=== PATIENT | male | born 1960 | race Caucasian/White ===

== ENCOUNTER 2020-02-14 13:03 | Emergency (ER) | payer BC ==
[2020-02-14 13:49] LABS: Absolute Lymphocytes (CBC) 3.2 K/uL (0.7-4.9); Basophils % 1.3 % (0-1.3); Hematocrit 50.9 % (39.6-49.0); Lymphocytes % 26.2 % (15.3-44.8); MPV 8.2 fL (7.6-11.3); RBC Red Blood Cell Count 5.81 M/uL (4.33-5.43)
[2020-02-14] MEDS ORDERED: ONDANSETRON 4 MG/2 ML VIAL ONE (13:54)
[2020-02-14] MEDS ORDERED: MORPHINE 4 MG/ML SYR ONE (13:54)
--- NOTE | 2020-02-14 14:04 | RAD REPORT ---
EXAM DESCRIPTION: CT - Head C Spine Cap W Con - 02/14/2020 1:42 pm CLINICAL HISTORY: 20' fall COMPARISON: No comparisons TECHNIQUE: Axial [address] head images were obtained. Axial [address] cervical spine images were obtaine d with sagittal and coronal reconstruction images reviewed. During dynamic enhancement of 100mL non-i onic contrast, axial 5 mm images of the chest, abdomen and pelvis were obtained. Biphasic technique p erformed of the abdomen and pelvis. All CT scans are performed using dose optimization technique as appropriate and may include automated exposure control or mA/KV adjustment according to patient size. FINDINGS: No intracranial hemorrhage, mass or edema. No midline shift or abnormal fluid collection. Mastoid air cells and paranasal sinuses are clear. No skull fracture. CT cervical spine imaging shows normal height. Normal alignment of the vertebrae. Minimal degenerativ e spurring changes are present at C4-5. No disc space narrowing. No paraspinal mass or hematoma seen. Central canal detail is inherently limited. Concerns for traumatic disc herniation or traumatic cord injury can be further addressed with MR imaging. Nodularity of the thyroid gland is present but not fully assessed. The largest nodule is probably 15 mm. This can be followed with sonography as clinica l findings warrant. CT chest shows no pneumothorax, pulmonary contusion or pleural fluid collection. No mediastinal hemat zeynep and the aorta and pulmonary arteries are unremarkable. No chest will mass or abnormal axillary fi nding. No displaced rib fracture or other significant bony finding. No pericardial effusion. Coronar y artery calcifications are present. CT abdomen and pelvis show no injury to solid abdominal viscera. Several small liver cysts are identi fied. Gallbladder and biliary tree are unremarkable. No bowel injury or significant finding. No free air, free fluid or abnormal stranding. No urinary bladder abnormality. Scattered degenerative changes are present in the skeleton. No pelvic or hip joint abnormality. No ac ting traumatic bony injury confirmed. No significant vascular finding. IMPRESSION: No hemorrhage, edema or acute CT Head finding. Mild cervical spine degenerative change with no acute finding. Central canal detail is inherently mcclelland ited. No acute traumatic injury to the chest. No traumatic injury to the abdomen or pelvis.
[2020-02-14 14:22] LABS: Potassium 4.6 mmol/L (3.5-5.1)
--- NOTE | 2020-02-14 14:37 | RAD REPORT ---
EXAM DESCRIPTION: RAD - Hand Left 3 View - 02/14/2020 1:59 pm CLINICAL HISTORY: PAIN, fall from 20 feet, right-sided hand and wrist pain COMPARISON: None. FINDINGS: No fracture, dislocation or periosteal reaction noted. No foreign body or other soft tissu e abnormality. IMPRESSION: Negative left hand examination.
--- NOTE | 2020-02-14 14:38 | RAD REPORT ---
EXAM DESCRIPTION: RAD - Wrist Left 3 View - 02/14/2020 1:59 pm CLINICAL HISTORY: PAIN, fall from ladder, left hand and wrist pain COMPARISON: No comparisons FINDINGS: No fracture is identified. There is no dislocation or periosteal reaction noted. No foreig n body or other soft tissue abnormality. Patient has a minimal negative ulnar variance as a normal v ariant in anatomy. IMPRESSION: Negative left wrist examination.
--- NOTE | 2020-02-14 16:21 | EDPHYS ---
Physician Documentation [facility] Name: Marcin Khanna Age: 59 yrs Sex: Male : 1960 Arrival Date: 02/14/2020 Time: 13:03 Bed 8 Private MD: ED Physician Sergio Giraldo HPI: 02/13 16:23 This 59 yrs old Male presents to ER via Wheelchair with complaints of Fall kdr Injury. 16:23 Details of fall: The patient fell from a height, from a ladder, approximately 20 feet. kdr Onset: The symptoms/episode began/occurred acutely, just prior to arrival. Associated injuries: The patient sustained right hip and thigh and left wrist. Severity of symptoms: At their worst the symptoms were mild. The patient has not experienced similar symptoms in the past. The patient has not recently seen a physician. Historical: - Allergies: 14: No Known Allergies; sv - PMHx: 14: Diabetes - NIDDM; sv - Immunization history:: Adult Immunizations up to date. - Social history:: Smoking status: unknown. ROS: 16:23 Constitutional: Negative for fever, chills, and weight loss, Eyes: Negative for injury, kdr pain, redness, and discharge, Neck: Negative for injury, pain, and swelling, Cardiovascular: Negative for chest pain, palpitations, and edema, Respiratory: Negative for shortness of breath, cough, wheezing, and pleuritic chest pain, Abdomen/GI: Negative for abdominal pain, nausea, vomiting, diarrhea, and constipation, Back: Negative for injury and pain, : Negative for injury, bleeding, discharge, and swelling, Neuro: Negative for headache, weakness, numbness, tingling, and seizure activity. Psych: Negative for depression, anxiety, suicide ideation, homicidal ideation, and hallucinations, Allergy/Immunology: Negative for hives, rash, and allergies, Endocrine: Negative for neck swelling, polydipsia, polyuria, polyphagia, and marked weight changes, Hematologic/Lymphatic: Negative for swollen nodes, abnormal bleeding, and unusual bruising. 16:23 MS/extremity: Positive for injury or acute deformity, contusion, ecchymosis, pain, tenderness, of the left wrist, lateral aspect of right thigh and lateral aspect of right knee. Exam: 16:23 Constitutional: This is a well developed, well nourished patient who is awake, alert, kdr and in no acute distress. Head/Face: Normocephalic, atraumatic. Eyes: Pupils equal round and reactive to light, extra-ocular motions intact. Lids and lashes normal. Conjunctiva and sclera are non-icteric and not injected. Cornea within normal limits. Periorbital areas with no swelling, redness, or edema. Neck: Trachea midline, no thyromegaly or masses palpated, and no cervical lymphadenopathy. Supple, full range of motion without nuchal rigidity, or vertebral point tenderness. No Meningismus. Chest/axilla: Normal chest wall appearance and motion. Nontender with no deformity. No lesions are appreciated. Cardiovascular: Regular rate and rhythm with a normal S1 and S2. No gallops, murmurs, or rubs. Normal PMI, no JVD. No pulse deficits. Respiratory: Lungs have equal breath sounds bilaterally, clear to auscultation and percussion. No rales, rhonchi or wheezes noted. No increased work of breathing, no retractions or nasal flaring. Abdomen/GI: Soft, non-tender, with normal bowel sounds. No distension or tympany. No guarding or rebound. No evidence of tenderness throughout. Back: No spinal tenderness. No costovertebral tenderness. Full range of motion. Neuro: Awake and alert, GCS 15, oriented to person, place, time, and situation. Cranial nerves II-XII grossly intact. Motor strength 5/5 in all extremities. Sensory grossly intact. Cerebellar exam normal. Normal gait. Psych: Awake, alert, with orientation to person, place and time. Behavior, mood, and affect are within normal limits. 16:23 Skin: injury, contusion(s), that are superficial, of the left wrist, lateral aspect of right thigh, lateral aspect of right knee and lateral aspect of right calf. Vital Signs: 13:12 BP 87 / 60; Pulse 87; Resp 22; Temp 97.0(TE); Pulse Ox 98% on R/A; Weight 86.18 kg; ss Height 5 ft. 10 in. (177.80 cm); Pain 8/10; 14:02 BP 120 / 73; Pulse 74; Resp 16; Temp 97.1; Pulse Ox 96% ; sv 14:38 BP 114 / 73; Pulse 68; Resp 16; Temp 97; Pulse Ox 98% ; sv 15:00 BP 119 / 74; Pulse 69; Resp 18; Pulse Ox 99% ; sv 16:15 BP 119 / 71; Pulse 72; Resp 16; Pulse Ox 99% ; sv 13:12 Body Mass Index 27.26 (86.18 kg, 177.80 cm) ss [place] Coma Score: 13:12 Eye Response: spontaneous(4). Verbal Response: oriented(5). Motor Response: obeys ss commands(6). Total: 15. 15:00 Eye Response: spontaneous(4). Verbal Response: oriented(5). Motor Response: obeys sv commands(6). Total: 15. 16:15 Eye Response: spontaneous(4). Verbal Response: oriented(5). Motor Response: obeys sv commands(6). Total: 15. Trauma Score (Adult): 13:12 Eye Response: spontaneous(1); Verbal Response: oriented(1); Motor Response: obeys ss commands(2); Systolic BP: > 89 mm Hg(4); Respiratory Rate: 10 to 29 per min(4); [place] Score: 15; Trauma Score: 12 14:02 Eye Response: spontaneous(1); Verbal Response: oriented(1); Motor Response: obeys sv commands(2); Systolic BP: > 89 mm Hg(4); Respiratory Rate: 10 to 29 per min(4); [place] Score: 15; Trauma Score: 12 14:39 Eye Response: spontaneous(1); Verbal Response: oriented(1); Motor Response: obeys sv commands(2); Systolic BP: > 89 mm Hg(4); Respiratory Rate: 10 to 29 per min(4); [place] Score: 15; Trauma Score: 12 15:00 Eye Response: spontaneous(1); Verbal Response: oriented(1); Motor Response: obeys sv commands(2); Systolic BP: > 89 mm Hg(4); Respiratory Rate: 10 to 29 per min(4); [place] Score: 15; Trauma Score: 12 16:15 Eye Response: spontaneous(1); Verbal Response: oriented(1); Motor Response: obeys sv commands(2); Systolic BP: > 89 mm Hg(4); Respiratory Rate: 10 to 29 per min(4); [place] Score: 15; Trauma Score: 12 Laceration: 16:19 Wound Repair of 1.5cm ( 0.6in ) subcutaneous laceration to dorsal aspect of proximal snw phalanx of left thumb. Minimal bleeding noted.. Distal neuro/vascular/tendon intact. Anesthesia: Wound infiltrated with 3 mls of 1% lidocaine. Wound prep: Extensive cleansing with hibiclenz by me. Skin closed with 2 4-0 Prolene using simple sutures and sterile technique. Dressed with non-adherent dressing. Patient tolerated well. MDM: 16:20 Patient medically screened. kdr 16:23 Data reviewed: vital signs, nurses notes, lab test result(s), radiologic studies. kdr Counseling: I had a detailed discussion with the patient and/or guardian regarding: the historical points, exam findings, and any diagnostic results supporting the discharge/admit diagnosis, lab results, radiology results, the need for outpatient follow up. 02/13 13:25 Order name: Basic Metabolic Panel; Complete Time: 14:53 kdr 02/13 13:25 Order name: CBC with Diff; Complete Time: 14:09 kdr 02/13 13:25 Order name: CT Traumagram (Head C Spine CAP W Con); Complete Time: 14:09 kdr 02/13 13:25 Order name: Type And Screen; Complete Time: 14:53 kdr 02/13 14:10 Order name: CREATININE WHOLE BLOOD; Complete Time: 14:53 EDMS 02/13 14:39 Order name: ABO/RH no charge; Complete Time: 14:53 EDMS 02/13 13:25 Order name: Labs collected and sent; Complete Time: 13:30 kdr 02/13 13:25 Order name: Wrist Left (3 View) XRAY; Complete Time: 14:53 kdr 02/13 13:25 Order name: Hand Left 3 View XRAY; Complete Time: 14:53 kdr Administered Medications: 13:51 Drug: Zofran (Ondansetron) 4 mg Route: IVP; Site: right antecubital; sv 17:27 Follow up: Response: No adverse reaction sv 13:53 Drug: morphine 4 mg {Note: rass1.} Route: IVP; Site: right antecubital; sv 14:00 Follow up: Response: No adverse reaction; Pain is decreased; RASS: Alert and Calm (0) sv Disposition: 18:05 Co-signature as Attending Physician, Sergio Giraldo MD I agree with the assessment and kdr plan of care. Disposition: 02/14/20 16:20 Discharged to Home. Impression: Other slipping, tripping and stumbling and falls, Contusions (right hip, thigh and left wrist). - Condition is Stable. - Discharge Instructions: Contusion, [id number], Laceration Care, Adult, [id number]. - Prescriptions for Keflex 500 mg Oral Capsule - take 1 capsule by ORAL route every 8 hours for 10 days; 9 capsule. Tramadol 50 mg Oral Tablet - take 1 tablet by ORAL route every 8 hours as needed; 12 tablet. - Medication Reconciliation Form, Thank You Letter, Antibiotic Education form. - Follow up: Private Physician; When: 2 - 3 days; Reason: If symptoms return, Further diagnostic work-up, Recheck today's complaints, Continuance of care, Re-evaluation by your physician. - Problem is new. - Symptoms have improved. - Notes: Sutures out in 10-12 days Signatures: Dispatcher [employer] EDFern Salas RN RN sv Rittger, Kevin, MD MD kdr Sujata Holland, UNDERWEAR HEMMER-C UNDERWEAR HEMMER-Csnw Corrections: (The following items were deleted from the chart) 16:33 16:20 02/14/2020 16:20 Discharged to Home. Impression: Other slipping, tripping and sv stumbling and falls; Contusions (right hip, thigh and left wrist). Condition is Stable. Forms are Medication Reconciliation Form, Thank You Letter, Antibiotic Education, Prescription Opioid Use. Follow up: Private Physician; When: 2 - 3 days; Reason: If symptoms return, Further diagnostic work-up, Recheck today's complaints, Continuance of care, Re-evaluation by your physician. Problem is new. Symptoms have improved. kdr
--- NOTE | 2020-02-14 16:21 | ER ---
Nurse's Notes [facility] Name: Marcin Khanna Age: 59 yrs Sex: Male : 1960 Arrival Date: 02/14/2020 Time: 13:03 Bed 8 Private MD: Diagnosis: Other slipping, tripping and stumbling and falls;Contusions (right hip, thigh and left wrist) Presentation: 02/13 13:11 Chief complaint: Patient states: Fell 20 feet off of a ladder landing onto R side. Pt ss c/o SOB, pain to L wrist, bruising noted to R thigh and 1 inch laceration to L hand. "brief LOC". Care prior to arrival: None. Mechanism of Injury: Fall approximately 20 feet. Trauma event details: Injury occurred in the [facility], Injury occurred: at home. 13:11 Method Of Arrival: Wheelchair ss 13:11 Acuity: BYRON 1 ss 13:27 Coronavirus screen: Proceed with normal triage. Patient denies a cough. Patient denies sv shortness of breath or difficulty breathing. Patient denies measured and/or subjective temperature greater than 100.4F prior to today's visit. Patient denies travel on a cruise ship or to a country the [facility] currently lists as an affected area. Patient denies contact with known and/or suspected case of COVID-19. Ebola Screen: No symptoms or risks identified at this time. Initial Sepsis Screen: Does the patient meet any 2 criteria? RR > 20 per min. No. Patient's initial sepsis screen is negative. Does the patient have a suspected source of infection? No. Patient's initial sepsis screen is negative. Risk Assessment: Do you want to hurt yourself or someone else? Patient reports no desire to harm self or others. Onset of symptoms was February 14, 2020. Historical: - Allergies: 14:01 No Known Allergies; sv - PMHx: 14:01 Diabetes - NIDDM; sv - Immunization history:: Adult Immunizations up to date. - Social history:: Smoking status: unknown. Screenin:15 Abuse screen: Denies threats or abuse. Denies injuries from another. Tuberculosis sv screening: No symptoms or risk factors identified. 14:06 Nutritional screening: No deficits noted. Fall Risk None identified. ph Primary Survey: 13:15 NO uncontrolled hemorrhage observed. A: The patient is alert. Airway: patent, No sv supplemental oxygen in use on arrival. Oral cavity: clear, Trachea midline. Breathing/Chest: Respiratory pattern: regular, Respiratory effort: spontaneous, unlabored, Chest inspection: symmetrical rise and fall of the chest. Circulation: Pulses: palpable right radial artery. Skin color: pink, Skin temperature: warm, dry. Disability Alert. Exposure/Environment: All clothing and personal items were removed. Forensic evidence collection is not deemed to be indicated at this time. Items placed in patient belonging bag. There is no evidence of uncontrolled external bleeding. A warming method has been applied: A warm blanket has been provided to the patient. 14:01 Reassessment Airway Airway Patent Oxygen No O2 Oral cavity Clear Trachea Midline sv Breathing/Chest Respiratory pattern Regular Respiratory effort Spontaneous Unlabored Chest inspection Symmetrical Circulation Heart rhythm Sinus rhythm Pulses Palpable Color [place] Temperature Warm Dry Disability Alert. Secondary Survey: 13:15 HEENT: No deficits noted. Gastrointestinal: No deficits noted. : No signs and/or sv symptoms were reported regarding the genitourinary system. Musculoskeletal: Swelling present in left wrist. Injury Description: Bruise sustained to left wrist and right side chest is purple, was sustained 30-60 minutes ago. Assessment: 16:33 Reassessment: Patient appears in no apparent distress at this time. Patient and/or sv family updated on plan of care and expected duration. Pain level reassessed. Patient is alert, oriented x 3, equal unlabored respirations, skin warm/dry/pink. Patient states feeling better. Patient states symptoms have improved. Vital Signs: 13:12 BP 87 / 60; Pulse 87; Resp 22; Temp 97.0(TE); Pulse Ox 98% on R/A; Weight 86.18 kg; ss Height 5 ft. 10 in. (177.80 cm); Pain 8/10; 14:02 BP 120 / 73; Pulse 74; Resp 16; Temp 97.1; Pulse Ox 96% ; sv 14:38 BP 114 / 73; Pulse 68; Resp 16; Temp 97; Pulse Ox 98% ; sv 15:00 BP 119 / 74; Pulse 69; Resp 18; Pulse Ox 99% ; sv 16:15 BP 119 / 71; Pulse 72; Resp 16; Pulse Ox 99% ; sv 13:12 Body Mass Index 27.26 (86.18 kg, 177.80 cm) [place] Coma Score: 13:12 Eye Response: spontaneous(4). Verbal Response: oriented(5). Motor Response: obeys ss commands(6). Total: 15. 15:00 Eye Response: spontaneous(4). Verbal Response: oriented(5). Motor Response: obeys sv commands(6). Total: 15. 16:15 Eye Response: spontaneous(4). Verbal Response: oriented(5). Motor Response: obeys sv commands(6). Total: 15. Trauma Score (Adult): 13:12 Eye Response: spontaneous(1); Verbal Response: oriented(1); Motor Response: obeys ss commands(2); Systolic BP: > 89 mm Hg(4); Respiratory Rate: 10 to 29 per min(4); [place] Score: 15; Trauma Score: 12 14:02 Eye Response: spontaneous(1); Verbal Response: oriented(1); Motor Response: obeys sv commands(2); Systolic BP: > 89 mm Hg(4); Respiratory Rate: 10 to 29 per min(4); [place] Score: 15; Trauma Score: 12 14:39 Eye Response: spontaneous(1); Verbal Response: oriented(1); Motor Response: obeys sv commands(2); Systolic BP: > 89 mm Hg(4); Respiratory Rate: 10 to 29 per min(4); [place] Score: 15; Trauma Score: 12 15:00 Eye Response: spontaneous(1); Verbal Response: oriented(1); Motor Response: obeys sv commands(2); Systolic BP: > 89 mm Hg(4); Respiratory Rate: 10 to 29 per min(4); [place] Score: 15; Trauma Score: 12 16:15 Eye Response: spontaneous(1); Verbal Response: oriented(1); Motor Response: obeys sv commands(2); Systolic BP: > 89 mm Hg(4); Respiratory Rate: 10 to 29 per min(4); [place] Score: 15; Trauma Score: 12 ED Course: 13:03 Patient arrived in ED. ag5 13:12 Triage completed. ss 13:13 Fern Hernandez, AMAURY is Primary Nurse. sv 13:15 Sergio Giraldo MD is Attending Physician. kdr 13:15 Inserted saline lock: 18 gauge in right antecubital area, using aseptic technique. sv Blood collected. Flushed right antecubital with 5 ml normal saline. 13:15 Patient maintains SpO2 saturation greater than 95% on room air. sv 13:15 Thermoregulation: warm blanket given to patient. sv 13:15 Patient has correct armband on for positive identification. Placed in gown. Bed in low sv position. Call light in reach. Side rails up X2. monitor and storage bin tender on. Pulse ox on. NIBP on. Door closed. Head of bed elevated. 13:20 Arm band placed on. sv 13:42 CT Traumagram (Head C Spine CAP W Con) In Process Unspecified. EDMS 13:50 Lab(s) recollected, by me, sent to lab. sv 13:59 Wrist Left (3 View) XRAY In Process Unspecified. EDMS 13:59 Hand Left 3 View XRAY In Process Unspecified. EDMS 14:38 Awaiting radiology results. sv 16:16 Assist provider with laceration repair on left arm that was 2.5 cm. or less using sv sutures. Set up tray. Performed by Sujata COLON Patient tolerated well. 16:19 Sujata Holland FNP-C is PHCP. snw 16:31 IV discontinued, intact, bleeding controlled, No redness/swelling at site. Pressure sv dressing applied. Administered Medications: 13:51 Drug: Zofran (Ondansetron) 4 mg Route: IVP; Site: right antecubital; sv 17:27 Follow up: Response: No adverse reaction sv 13:53 Drug: morphine 4 mg {Note: rass1.} Route: IVP; Site: right antecubital; sv 14:00 Follow up: Response: No adverse reaction; Pain is decreased; RASS: Alert and Calm (0) sv Intake: 13:12 PO: 0ml; Total: 0ml. sv 14:02 PO: 0ml; Total: 0ml. sv 14:39 PO: 0ml; Total: 0ml. sv 15:00 PO: 0ml; Total: 0ml. sv 16:15 PO: 0ml; Total: 0ml. sv Output: 13:12 Urine: 0ml; Total: 0ml. sv 14:02 Urine: 0ml; Total: 0ml. sv 14:39 Urine: 0ml; Total: 0ml. sv 15:00 Urine: 0ml; Total: 0ml. sv 16:15 Urine: 0ml; Total: 0ml. sv Outcome: 16:20 Discharge ordered by . kdr 16:30 Discharged to home ambulatory. sv 16:30 Condition: stable 16:30 Discharge instructions given to patient, Discharge instructions gone over by Nida REBOLLEDO Instructed on discharge instructions, follow up and referral plans. medication usage, wound care, Demonstrated understanding of instructions, follow-up care, medications, wound care, Prescriptions given X 2. 16:33 Patient's length of stay in the Emergency Department was greater than 2 hours. sv Patient's length of stay was extended due to staffing issues within the emergency department. 16:33 Patient left the ED. sv Signatures: Dispatcher [employer] EDMS Fern Hernandez RN RN Sergio Giraldo MD MD kdr Waters, Shelly, TRIMMING MACHINE SET UP OPERATOR-C TRIMMING MACHINE SET UP OPERATOR-Csnw Tahmina Miller RN RN Elizabeth Alicia RN RN Alberto, Shahriar ag5 Corrections: (The following items were deleted from the chart) 13:13 13:11 Acuity: BYRON 2 ss ss 14:39 14:02 BP 120 / 73; Pulse 74bpm; Resp 16bpm; Pulse Ox 96%; sv sv 16:31 16:30 Discharge instructions given to patient, Instructed on discharge instructions, sv follow up and referral plans. wound care, Demonstrated understanding of instructions, follow-up care, wound care, sv
[2020-02-14 16:46] VITALS: TEMP 97
[2020-02-14 16:48] VITALS: O2SAT 99
[2020-02-14 16:49] VITALS: BP 119/71
== END 2020-02-14 16:33 | disposition home or self-care (01) ==
LOC: ER 13:03
PROC: 0JQK0ZZ Repair Left Hand Subcutaneous Tissue and Fascia, Open Approach (ICD-10-PCS; principal; 2020-02-14)
DX: S61.012A Laceration without foreign body of left thumb without damage to nail, initial encounter (principal); S70.01XA Contusion of right hip, initial encounter; S70.11XA Contusion of right thigh, initial encounter; S60.212A Contusion of left wrist, initial encounter; W11.XXXA Fall on and from ladder, initial encounter; Y93.9 Activity, unspecified; Y92.9 Unspecified place or not applicable; E11.9 Type 2 diabetes mellitus without complications
CPT/HCPCS: 85025; 80048; 36415; 86900; 86850; 82565; 86901; 70450; 72125; 71260; 74177; 73130; 73110; 96375; 96374; 99291; 99292; 12001; Q9967; J2405; G0390